=== PATIENT | female | born 1950 | race Caucasian/White ===

== ENCOUNTER → 2018-01-18 11:22 | Outpatient (CLI) | payer MEDICARE, BC ==
[~2018-01-18] VITALS: Ht 175.3 cm; Wt 90.0 kg
--- NOTE | ~2018-01-18 | OP ---
PATIENT NAME: MARY MAO MEDICAL RECORD: [id number] :54 LOCATION:D.CAT ADMISSION DATE: SURGEON: WALKER TANG MD DATE OF OPERATION: 01/18/2018 PROCEDURES: Left heart catheterization, selective coronary angiography, right radial approach. CATHETERS: [place] catheter, radial sheath. The procedure was tolerated. The patient was returned to gonzalez. Sheath was removed. TR band was placed. FINDINGS: Left ventriculography in the 30-degree OLIVEIRA view: Normal wall motion. Normal systolic function. CORONARY ANATOMY: LEFT MAIN: Left main is free of disease. LAD: Free of disease in the diagonal system. CIRCUMFLEX: Free of disease in the marginal system. RIGHT CORONARY ARTERY: Large dominant right, free of disease. IMPRESSION: Normal systolic function. Normal coronary anatomy. TRANSINT:[id number] Voice Confirmation ID: [id number] DOCUMENT ID: [id number] WALKER TANG MD at 1325 CC: [id number] DICTATION DATE: 01/18/18 1509 RESIDENTIAL SOLAR CONSULTANT: 01/18/18 1602 DEP CLI 01/18/18 [id number] [place] [address]
--- NOTE | ~2018-01-18 | HEMODYNAMI ---
PATIENT:MARY MAO MEDICAL RECORD: [id number] : 54 LOCATION:[facility] ADMISSION DATE: 01/18/18 Generatedon:01/18/201815:08 Patient name: MARY MAO Patient #: [id number] SSN: D OB: 1950 Date of study: 01/18/2018 Page: Of Hemodynamic Procedure Report Patient Data Patient Demographics Procedure consent was obtained First Name: MARY Gender: Female Last Name: MAYCO : 1950 Patient #: [id number] Age: 67 year(s) Race: Unknown Additional ID: [id number] Contact details Address: [address] [place] [address] State: [place] City: [place] Zip code: [address] Past Medical History Allergies: No known allergies Admission Admission Data Admission Date: 01/18/2018 Admission Time: 11:22 Lab Results Lab Result Date: 01/18/2018 Lab Result Time: 0:00 Biochemistry Name Units Result Min Max BUN mg/dl 23 --(----)-* 7 18 Creatinine mg/dl 0.8 --(-*--)-- 0.6 1.3 CBC Name Units Result Min Max Hemoglobin g/dl 14.6 --(-*--)-- 13.5 17.5 Procedure Procedure Types Cath Procedure Diagnostic Procedure [facility] w/Coronaries Procedure Description Procedure Date Procedure Date: 01/18/2018 Procedure Start Time: 14:59 Procedure End Time: 15:07 Procedure Staff Name Function Vinh Campbell MD Performing Physician Marjan Humphreys RT Monitor Horacio Beltran RN Nurse Lisbeth Dukes RT Scrub Procedure Data Cath Procedure Fluoroscopy Diagnostic fluoroscopy Total fluoroscopy Time: 1.1 time: 1.1 min min Diagnostic fluoroscopy Total fluoroscopy dose: 240 dose: 240 mGy mGy Contrast Material Contrast Material Type Amount (ml) Isovue 300 47 Entry Location Entry Primary Successful Side Size Upsize Upsize Entry Closure Bellamy ccessful Closure Location (Fr) 1 (Fr) 2 (Fr) Remarks Device Remarks Radial Right 6 Fr Mechanical artery Short Compression Estimated blood loss: 5 ml Diagnostic catheters Device Type Used For End Catheter Placement DIAGNOSTIC [place] 110cm 5 Procedure Fr catheter ([id number]) Procedure Complications No complications Procedure Medications Medication Administration Route Dosage 0.9% NaCl I.V. 100 ml/hr Oxygen NC 2 l/min Heparin Flush Bag added to field 2 bags (1000units/500ml NS) Lidocaine 2% added to field 20 Radial Cocktail added to field 1 syringe (Verapomil 2mg/Nitro 400mcg/Heparin 1500units) Versed I.V. 2 mg Fentanyl I.V. 100 mcg Radial Cocktail I.A. 1 syringe (Verapomil 2mg/Nitro 400mcg/Heparin 1500units) Versed I.V. 2 mg Hemodynamics Rest HGB: 14.6 (g/dl) Heart Rate: 69 (bpm) Pressure Samples Time Site Value (mmHg) Purpose Heart Use Rate(bpm) 15:01 LV 129/9,13 Snapshot 81 15:02 AO 125/77(99) Pullback 85 15:02 LV 129/7,8 Pullback 85 Gradients Valve Time Site 1 Site 2 Mean SEP/DFP Peak To Heart Use (mmHg) (sec/min) Peak Rate (mmHg) (bpm) Aortic 15:02 LV AO 5 19 4 85 129/7,8 125/77(99) Calculations Valve P-P Mean Valve Index Valve Source Name Gradient Area Flow (cm2) Aortic 4 5 4 5 Snapshots Pre Cath Intra NCS Post Cath Vital Signs Time Heart Resp SPO2 etCO2 NIBP (mmHg) Rhythm Pain Sedation Rate (ipm) (%) (mmHg) Status Level (bpm) 14:46:14 76 12 100 36 152/76(125) NSR 0 (11) 10(A) , No pain 14:50:55 71 22 98 20.3 136/82(109) NSR 0 (11) 10(A) , No pain 14:55:37 72 30 100 26.3 135/79(104) NSR 0 (11) 10(A) , No pain 15:00:20 72 13 98 0 143/76(115) NSR 0 (11) 10(A) , No pain 15:05:02 82 13 96 36 126/70(98) NSR 0 (11) 10(A) , No pain Medications Time Medication Route Dose Verified Delivered Reason Notes Effectiveness by by 14:47:05 0.9% NaCl I.V. 100 Horacio Horacio Per ml/hr Devin Beltran physician RN RN 14:47:16 Oxygen NC 2 l/min Horacio Horacio Per Devin Beltran physician RN RN 14:47:28 Heparin Flush added 2 bags Horacio Horacio used for Bag to Lorigan Devin procedure (1000units/500ml field RN RN NS) 14:47:39 Lidocaine 2% added 20ml Horacio Horacio for local to vial Lorigan Devin anesthetic field RN RN 14:47:49 Radial Cocktail added 1 Horacio Horacio used for (Verapomil to syringe Lorigan Lorigan procedure 2mg/Nitro field JOE RN 400mcg/Heparin 1500units) 14:59:30 Versed I.V. 2 mg Horacio Horacio for sedation Devin Beltran RN, RN 14:59:40 Fentanyl I.V. 100 mcg Horacio Horacio for sedation Devin Beltran RN RN 15:01:08 Radial Cocktail I.A. 1 Horacio Vinh for (Verapomil syringe Lorigan Shannan vasodilation 2mg/Nitro TATYANA DE [place] GARZA 400mcg/Heparin 1500units) 15:02:17 Versed I.V. 2 mg Horacio Horacio for sedation Devin Beltran RN customer service and sales consultant Log Time Note 14:35:52 Horacio Beltran RN sent for patient. Start room use. 14:35:53 Time tracking: Regular hours 14:35:57 Plan of Care:Hemodynamics will remain stable., Cardiac rhythm will remain stable., Comfort level will be maintained., Respiratory function will remain adequate., Patient/ family verbilizes understanding of procedure., Procedure tolerated without complication., Recovers from procedure without complications.. 14:39:32 Patient received from Pre/Post Procedure Room to CCL 1 Alert and oriented. Tansferred to table in Supine position. 14:39:33 Warm blankets applied, and ruslan hugger turned on for patient comfort. 14:39:34 Correct patient and procedure confirmed by team. 14:39:35 Signed procedure consent form obtained from patient. 14:39:36 ECG and BP/O2 sat monitors applied to patient. 14:39:37 Full Disclosure recording started 14:45:14 Vital chart was started 14:47:05 0.9% NaCl 100 ml/hr I.V. was administered by Horacio Beltran RN; Per physician; 14:47:16 Oxygen 2 l/min NC was administered by Horacio Beltran RN; Per physician; 14:47:28 Heparin Flush Bag (1000units/500ml NS) 2 bags added to field was administered by Horacio Beltran RN; used for procedure; 14:47:39 Lidocaine 2% 20ml vial added to field was administered by Horacio Beltran RN; for local anesthetic; 14:47:49 Radial Cocktail (Verapomil 2mg/Nitro 400mcg/Heparin 1500units) 1 syringe added to field was administered by Horacio Beltran RN; used for procedure; 14:48:49 Baseline sample Acquired. 14:48:53 Rhythm: sinus rhythm 14:49:18 H&P Date Dictated: 12/21/2017 Within 30 days and on chart., H&P Addendum completed by physician on day of procedure. (MUST COMPLETE FOR ALL OUTPATIENTS). 14:49:19 Pre-procedure instructions explained to patient. 14:49:19 Pre-op teaching completed and patient verbalized understanding. 14:49:21 Family in patients room. 14:49:22 Patient NPO since Midnight. 14:49:32 Patient allergic to No known allergies 14:49:38 Is patient on blood thinner?No 14:49:50 Patient diabetic? No. 14:49:53 Patient not . Patient is over age 55. 14:49:54 Previous problem with sedation/anesthesia? No ? 14:49:55 Snore? Yes 14:49:56 Sleep apnea? Yes 14:49:58 Deviated septum? No 14:49:59 Opens mouth fully? Yes 14:50:00 Sticks out tongue? Yes 14:50:02 Airway obstruction? No ? 14:50:03 Dentures? No ? 14:50:06 Modified Theron's test Ulnar < 7 seconds 14:50:11 Patient pain scale 0/10 ?. 14:50:21 IV patent on arrival in left hand with 0.9% NaCl at [facility]. 14:52:27 Lab Result : BUN 23 mg/dl 14:52:27 Lab Result : Creatinine 0.8 mg/dl 14:52:27 Lab Result : Hemoglobin 14.6 g/dl 14:52:30 Lab results completed and on chart. 14:52:33 Right Radial & Right Groin area was prepped with chlora-prep and draped in sterile fashion 14:52:37 Alarms reviewed by R. N. 14:52:37 Sharps counted by scrub and verified by R.N. 14:53:47 Use device set Radial Dx or PCI 14:53:49 ACIST Syringe (32492) opened to sterile field. 14:53:50 ACIST Hand Control (16683) opened to sterile field. 14:53:51 ACIST Manifold (46141) opened to sterile field. 14:53:51 Tegaderm 4 x 4 (1626W) opened to sterile field. 14:53:54 Bag Decanter (2002S) opened to sterile field. 14:53:55 Medline Cath Pack ([id number]) opened to sterile field. 14:53:56 SHEATH 6FR Slender ([id number]) opened to sterile field. 14:53:57 DIAGNOSTIC WIRE .035 260cm J wire (808505) opened to sterile field. 14:53:58 MBrace Wrist Support ([id number]) opened to sterile field. 14:57:16 --------ALL STOP TIME OUT------ 14:57:17 Final Timeout: patient, procedure, and site verified with staff and physician. All members of the team are in agreement. 14:57:19 Right Radial & Right Groin site verified by team. 14:57:25 Physical assessment completed. ASA score P 2 - A patient with mild systemic disease as per Vinh Campbell MD. 14:57:28 Sedation plan: IV Moderate Sedation Medication:Versed, Fentanyl 14:57:35 Zero performed for pressure channel P1 14:58:00 Procedure started. 14:59:26 Local anesthetic to right radial artery with Lidocaine 2% by Vinh Campbell MD.INITIAL ACCESS ONLY 14:59:30 Versed 2 mg I.V. was administered by Horacio Beltran RN; for sedation; 14:59:40 Fentanyl 100 mcg I.V. was administered by Horacio Beltran RN; for sedation; 15:00:26 A 6 Fr Short sheath was inserted into the Right Radial artery 15:00:32 Zero performed for pressure channel P1 15:01:04 A DIAGNOSTIC [place] 110cm 5 Fr catheter (800607) was advanced over the wire and used for Procedure. 15:01:08 Radial Cocktail (Verapomil 2mg/Nitro 400mcg/Heparin 1500units) 1 syringe I.A. was administered by Vinh Campbell MD; for vasodilation; 15:01:21 LV gram done using OLIVEIRA 15:01:27 Injector settings: Ml/sec: 7, Volume: 15, 15:01:33 LV hemodynamics recorded. 15:02:12 EF : 55 % 15:02:17 Versed 2 mg I.V. was administered by Horacio Beltran RN; for sedation; 15:02:57 LCA angiography performed. 15:03:49 RCA angiography performed. 15:03:54 Catheter removed. 15:04:05 TR BAND Standard ([id number]) opened to sterile field. 15:04:11 Procedure ended.(Physican Out) 15:04:30 Sheath removed intact; hemostasis achieved with Mechanical Compression to the Right Radial artery. 15:04:50 Fluoroscopy time 01.10 minutes. 15:04:54 Fluoroscopy dose: 240 mGy 15:04:54 Flurop Dose total: 240 15:05:05 Contrast amount:Isovue 300 47ml. 15:05:07 Sharps counted by scrub and verified by R.N. 15:05:39 TR band inflated with 11cc of air. 15:05:46 Post-procedure physical assessment completed. ASA score P 2 - A patient with mild systemic disease as per Vinh Campbell MD. 15:05:57 Post procedure rhythm: unchanged. 15:06:02 Estimated blood loss: 5 ml 15:06:09 Post procedure instruction explained to patient.Patient verbalizes understanding. 15:06:09 Patient needs reinforcement of post procedure teaching. 15:07:25 Procedure and supply charges have been captured, reviewed, submitted and are correct. 15:07:28 Procedure Complication : No complications 15:07:30 Vital chart was stopped 15:07:30 See physician's report for complete and final results. 15:07:31 Report given to Pre/Post Procedure Room. 15:07:34 Patient transfered to Pre/Post Procedure Room with Bed. 15:07:37 Procedure ended. 15:07:37 Full Disclosure recording stopped 15:07:40 End room use (Document Last) Device Usage Item Name Manufacture Quantity Catalog Hospital Part Current Minima l Lot# / Number Charge Number Stock Stock Serial# Code ACIST Acist 1 51542 569429 053087 401553 20 Syringe Medical (06375) Systems Inc ACIST Hand Acist 1 77588 146146 439592 792888 5 Control Medical (14164) Systems Inc ACIST Acist 1 08843 082955 898441 700399 5 Manifold Medical (95425) Systems Inc Tegaderm 4 x 3M 1 1626W 523887 774770 531121 5 4 (1626W) Bag Decanter Microtek 1 2002S 425260 74209 120486 5 (2001S) Medical Inc. Medline Cath Cardinal 1 [id number] 033772 91999 880604 5 Pack Health ([id number]) SHEATH 6FR Terumo 1 [id number] 990120 795535 715703 40 Slender ([id number]) DIAGNOSTIC [facility] [place] 1 437929 082487 892611 324341 30 WIRE .035 260cm J wire (532264) MBrace Wrist Advanced 1 140-0250-00 300482 68591 261303 5 Support Vascular ([id number]) Dynamics DIAGNOSTIC Terumo 1 40-3433 046494 045220 356754 5 [place] 110cm 5 Fr catheter (737425) TR BAND Terumo 1 [id number] 396614 346882 500945 40 Standard ([id number]) Signature Audit [place] Stage Time Signature Unsigned Intra-Procedure 01/18/2018 Marjan Humphreys 3:08:14 PM RT(R) Signatures Monitor : Marjan Humphreys Signature : RT Date : Time : [id number] [place] [address]
[~2018-01-18 11:22] MED LIST: CITRACAL + D E1 EACH PO; HYDROCHLOROTH12.5 M1 PO; MOBIC7.5 MG PO; MULTIPLE VITAMI1 TA1 PO; OMEPRAZOLE20 M1 PO
[2018-01-18 12:27] VITALS: BP 154/89; Ht 175.3 cm; Wt 90.0 kg
[2018-01-18 13:30] LABS: BASOPHILS 0.2 % (0-2); HEMATOCRIT 43.9 % (36.0-48.0); HEMOGLOBIN 14.6 g/dL (12-16); IMMATURE GRANULOCYTES 0.5 % (0-5); LYMPHOCYTES 16.3 % (15-50); MCH 30.6 pg (26.0-34.0); MCHC 33.3 g/dL (31.0-37.0); MONOCYTES 7.2 % (2-11); NEUTROPHILS 74.8 % (40-80); PLATELET COUNT 228 10x3/uL (130-400); RBC 4.77 10x6/uL (4.00-5.40); RDW 13.5 % (11.5-14.5); WBC 12.6 10x3/uL (4.8-10.8)
[2018-01-18 13:34] LABS: CALC OSMOLALITY 285 mosm/kg (275-300); CALCIUM 9.4 mg/dL (8.5-10.1); CARBON DIOXIDE 27.7 mmol/L (21.0-32.0); CHLORIDE - SERUM 103 mmol/L (98-107); CREATININE - SERUM 0.8 mg/dL (0.6-1.3); GLUCOSE 89 mg/dL (74-106); SODIUM 142 mmol/L (136-145); UREA NITROGEN 23 mg/dL (7-18); eGFR NON AFRICAN AMERICAN 76 mL/min (90-120)
== END | disposition home or self-care (01) ==
LOC: D.CATH 11:22
PROVIDERS: Internal Medicine Interventional Cardiology
DX: I20.9 Angina pectoris, unspecified (principal); I10 Essential (primary) hypertension; R06.09 Other forms of dyspnea; Z01.812 Encounter for preprocedural laboratory examination

== ENCOUNTER → 2018-04-27 19:14 | Outpatient (CLI) | payer MEDICARE, BC ==
[2018-01-18 12:27] VITALS: BMI 29.3
== END | disposition home or self-care (01) ==
LOC: D.SLEEP 19:14
DX: G47.00 Insomnia, unspecified (principal); G47.30 Sleep apnea, unspecified

== ENCOUNTER → 2019-10-19 10:04 | Outpatient (CLI) | payer MEDICARE, BC ==
[2018-01-18 12:27] VITALS: BMI 29.3
== END | disposition home or self-care (01) ==
LOC: D.MRI 10:04
PROVIDERS: ATTEND Orthopaedic Surgery
DX: M54.16 Radiculopathy, lumbar region (principal)